=== PATIENT | male | born 1960 | race Two or more races ===

== ENCOUNTER 2024-10-28 13:20 | Emergency (ER) | payer MEDICAID, SELFPAY ==
[2024-10-28 13:23] VITALS: BMI 26.6
--- NOTE | 2024-10-28 13:44 | PC.NURSE ---
no answer in lobby when called for room in ed
--- NOTE | 2024-10-28 14:37 | PC.NURSE ---
no answer in lobby when called for room in ed
== END 2024-10-28 19:28 | disposition left against medical advice (07) ==
LOC: SERX 15:38
PROVIDERS: Emergency Provider Family Medicine
DX: Z53.21 Procedure and treatment not carried out due to patient leaving prior to being seen by health care provider (principal)
CPT/HCPCS: 99281

== ENCOUNTER 2025-02-03 07:20 | Emergency (ER) | payer MEDICAID, SELFPAY ==
[2025-02-03 07:30] VITALS: BP 160/96; PULSE 68; RESP 18; TEMP 36.9; O2SAT 99; BMI 28.3
--- NOTE | 2025-02-03 07:32 | XR_ITS ---
Examination: CT brain head without contrast. 2-D sagittal coronal reconstructions Date and time of exam:February 03, 2025, 0824 hours INDICATIONS: Generalized hip pain today CTDI: vol (mGy):54.8 DLP: (mGycm):1094 Technique: Multiple CT axial sections of the brain have been obtained, 5 mm slice thickness. Contrast has not been administered. 2-D sagittal, coronal reconstructions have been obtained Low dose protocols were performed. One or more of the following dose reduction techniques were used; automated exposure control, adjustment of the mA and/or KV according to patient size, use of iterative reconstruction technique. Findings: No significant ventricular enlargement. 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 No mass effect or midline shift Basal cisterns are not remarkable. Fourth ventricle is midline. Cranial vault intact. Mild chronic ethmoid sinusitis Heavy vertebral artery calcification Impression: Negative for acute hemorrhage, mass effect or midline shift Old appearing infarcts in the right basal ganglia, but clinical correlation advised As clinically warranted, consider brain MRI follow-up
--- NOTE | 2025-02-03 07:33 | EKG_ITS ---
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
--- NOTE | 2025-02-03 07:33 | XR_ITS ---
Examination: PA lateral chest 2 views TECHNIQUE: Upright PA lateral chest 2 views Date and time: February 03, 2025, 0747 hours Comparison March 19, 2016 INDICATIONS: Acute chest pain today. FINDINGS: Normal heart size Ectatic thoracic aorta No pulmonary edema or lobar pneumonia Mild osteopenia IMPRESSION: No lobar pneumonia or pulmonary edema
--- NOTE | 2025-02-03 07:33 | EDRME_ITS ---
Rapid Medical Screening Exam [facility] Arrival date/time: 02/03/25 07:20 64-year-old male with history of hypertension, diabetes, bipolar disorder and depression presents to the emergency department today for complaints of dizziness, fatigue. Patient reports that he has been out of his medication, he has not taken his medication over a month Chief Complaint: Dizziness Vital signs: Vital Signs Temperature 98.5 F 02/03/25 07:30 Pulse Rate 68 02/03/25 07:30 Respiratory Rate 18 02/03/25 07:30 Blood Pressure 160/96 H 02/03/25 07:30 Pulse Oximetry (%) 99 02/03/25 07:30 Oxygen Delivery Method Room Air 02/03/25 07:30
[2025-02-03 08:26] LABS: Glucose Estimated Average 143 mg/dL (80-131); Hemoglobin A1C 6.6 % Hgb (4.8-6.0)
[2025-02-03 08:30] LABS: B-Type Natriuretic Peptide 69 pg/mL (0-100)
[2025-02-03 08:32] LABS: Alanine Aminotransferase 11 U/L (10-49); Albumin, Serum 4.2 gm/dL (3.4-4.8); Albumin/Globulin Ratio 1.4 (1.2-2.2); Alkaline Phosphatase 137 U/L (46-116); Anion Gap 8 (7-16); Aspartate Amino Transferase 15 U/L (0-34); BUN/Creatinine Ratio 10 Ratio (12-20); Bilirubin,Total 0.4 mg/dL (0.3-1.2); Blood Urea Nitrogen 9 mg/dL (9-23); Calcium 9.4 mg/dL (8.3-10.6); Calcium (Corrected) 9.4 mg/dL (8.5-10.1); Carbon Dioxide 29.5 mMol/L (20.0-31.0); Chloride 103 mMol/L (98-107); Creatinine (Component) 0.9 mg/dL (0.6-1.3); Estimated Creatinine Clearance 90.6 mL/min (>60); Globulin 3.0 gm/dL (2.3-3.5); Glucose 192 mg/dL (74-106); Magnesium 1.3 mg/dL (1.6-2.6); Osmolality,Calculated 283 (275-295); Potassium 4.2 mMol/L (3.4-5.1); Sodium 140 mMol/L (136-145); Total Protein 7.2 gm/dL (5.7-8.2); Troponin I 0.139 ng/mL (0.0-0.045); eGFR > 60 See Note
[2025-02-03 08:38] LABS: Basophils # (Auto) 0.1 Thou/mm3 (0.0-0.2); Basophils % (Auto) 1 % (0-2.5); Eosinophils # (Auto) 0.2 Thou/mm3 (0.0-0.5); Eosinophils % (Auto) 3 % (0-10); Hematocrit 40.9 % (41.0-53.0); Hemoglobin 14.4 g/dL (13.5-16.0); Immature Granulocytes Auto 0.01 Thou/mm3 (0.00-0.00); Lymphocytes # (Auto) 1.7 Thou/mm3 (1.0-4.8); Lymphocytes % (Auto) 24 % (10-50); Mean Corpuscular HGB Conc 35.2 g/dl (31.0-37.0); Mean Corpuscular Hemoglobin 32.1 pg (25.0-35.0); Mean Corpuscular Volume 91 fL (80-100); Monocytes # (Auto) 0.5 Thou/mm3 (0.0-0.8); Monocytes % (Auto) 7 % (0-12); Neutrophils # (Auto) 4.6 Thou/mm3 (1.8-7.7); Neutrophils % (Auto) 66 % (37-80); Nucleated Red Blood Cell # 0.00 Thou/mm3 (0.00-0.00); Nucleated Red Blood Cell % 0 /100 WBC (0); Platelet Count 268 Thou/mm3 (140-440); RDW Standard Deviation 41.3 fL (35.1-43.9); Red Blood Count 4.49 Miln/mm3 (4.50-5.90); White Blood Count 7.0 Thou/mm3 (3.8-10.6)
[2025-02-03 08:53] LABS: INR 1.0 (0.9-1.3); Partial Thromboplastin Time 27.1 Seconds (22.0-36.0); Prothrombin Time 10.9 Seconds (9.0-12.2)
--- NOTE | 2025-02-03 09:30 | PD.EDADULT ---
ED General RME/HPI General Chief complaint: Dizziness Stated complaint: Out of DM pills and HTN pills, dizzy Arrival date/time: 02/03/25 07:20 RME / HPI RME / HPI narrative: 02/03/25 07:20 64-year-old male with history of hypertension, diabetes, bipolar disorder and depression presents to the emergency department today for complaints of dizziness, fatigue. Patient reports that he has been out of his medication, he has not taken his medication over a month DR. SEXTON MAIN ED EVALUATION: 64 year old male presents to the Emergency Department with complaint of dizziness and generalized weakness today. Patient states he has history of diabetes and hypertension and ran out of his medications. He has been on metformin for 4-5 years. Otherwise, no other complaints; no eating problems, no unsteady gait/ gait problems, cough, shortness of breath, congestion, cold, nausea, vomiting, diarrhea, abnormal bleed, or other symptoms at this time. Related Data Home Medications ?Medication ?Instructions ?Recorded ?Confirmed lisinopril 20 mg tablet 20 mg PO DAILY 09/03/18 10/10/18 metformin 1,000 mg tablet 1,000 mg PO BID 09/03/18 10/10/18 sitagliptin phosphate 100 mg 100 mg PO DAILY 09/03/18 10/10/18 tablet (Januvia) Previous Rx's ?Medication ?Instructions ?Recorded acetaminophen 500 mg tablet 500 mg PO QID PRN pain #60 tabs 09/03/18 acetaminophen 500 mg tablet 1,000 mg (2 x 500 mg) PO Q6H PRN 02/10/21 pain #20 tabs ibuprofen 800 mg tablet 800 mg PO Q6H PRN pain #12 tabs 02/10/21 gabapentin 300 mg capsule 300 mg PO TID PRN pain #20 caps 07/18/22 Allergies Allergy/AdvReac Type Severity Reaction Status Date / Time No Known Allergies Allergy Verified 02/03/25 07:24 Review of Systems Review of Systems Systems Reviewed: All systems reviewed, normal except as documented Past Medical History Past Medical History CARDIAC: Positive Cardiac Disorders, Hypercholesterolemia and Hypertension; Negative Congestive Heart Failure RESPIRATORY: Positive Asthma; Negative Chronic Obstructive Pulmonary Disease (COPD) GENITOURINARY: Negative Renal Disease ENDOCRINE: Positive Endocrine Disorders and Diabetes Mellitus Type 2; Negative Diabetes Mellitus Type 1 HEMATOLOGIC: Negative Sickle Cell Disease PSYCHO/SOCIAL: Positive Depression Social History SMOKING STATUS: Current some day smoker SUBSTANCE USE: does not use ED Exam Narrative Physical exam: Physical Exam:? General:?? ? The vital signs were reviewed. ? ? The patient is non-toxic, in no apparent distress and appears healthy with a patent airway, no respiratory distress and has no apparent circulatory problems. Head & Scalp:?? ? Normocephalic, atraumatic. Face:?? ? Appears normal and is without lesions, deformity. Ears:??? Left external pinna appears normal. ? ? Right external pinna appears normal. Eyes:?? ? The sclera is anicteric.? No obvious photophobia. ? ? The Left and Right Orbit/Lid/Conjunctiva appears normal without swelling, discoloration or injection. Nose: ? ? The nose is without deformity, discharge or tenderness; Throat: ? ? Appears normal.? The mucous membranes are pink and moist without exudates, redness or mass seen.? The tongue appears normal. Neck: The neck is supple and no apparent mass or adenopathy. Chest: The chest wall is normal in size and symmetry and has no chest wall tenderness or crepitus. ? ? The patient displays normal ventilator effort without retractions, accessory muscle use and has adequate air movement bilaterally with no wheezes and no rales. ? Cardiovascular: Regular rate and rhythm; No murmurs, rubs, or gallops; Gastrointestinal: The abdomen appears normal.? No obvious hernias or mass. The abdomen is soft and benign, non-distended, with no pain, no guarding and no rebound tenderness.? Bowel sounds are present and normal sounding.? No CVA tenderness. Genitourinary: Back/Spine: Extremities/Musculoskeletal/lymphatic:? ? ? The bilateral upper and lower extremities are warm. There is no evidence of arterial? insufficiency. There is no evidence of venous insufficiency/edema. The patient spontaneously moves bilateral upper and lower extremities with no pain and no limitation of movement.? There is no apparent, injury or trauma. Skin:? The skin is warm, dry and intact.? No rashes. No petechia. No purpura. No abnormal bruising.? The color is appropriate with no cyanosis. Mental status/Psychiatric: Mental status is appropriate for age. The patient has no apparent delusions, visual hallucinations, no apparent audible hallucinations. The patient has no apparent suicidal thoughts/ideation and no apparent homicidal thoughts/ideation. Neurological:? The patient is awake, alert, interactive, cordial, cooperative and is oriented to name and situation. The patient follows commands and answers historical question with no impairment.?? There is no visual disturbance apparent.? The pupils are equal and reactive bilaterally with normal eye movements and no diplopia The bilateral upper and lower extremities have normal strength, normal range of motion and normal functioning. The gait, station and balance appears? to be baseline with no acute change Course Quality Measures none Orders Category Date Time Status EKG (ED ONLY) *Do not use* NOW Care 02/03/25 07:[address] head/brain wo con Stat Exams 02/03/25 07:32 Completed EKG (ED Only) Stat Exams 02/03/25 07:33 Draft XR chest 2V Stat Exams 02/03/25 07:33 Completed A1C [Glycohemoglobin w (eAG)] Stat Lab 02/03/25 08:02 Completed B-Type Natriuretic Peptide Stat Lab 02/03/25 08:02 Completed CBC Stat Lab 02/03/25 08:02 Completed Comprehensive Metabolic Panel Stat Lab 02/03/25 08:02 Completed Magnesium Stat Lab 02/03/25 08:02 Completed Partial Thromboplastin Time Stat Lab 02/03/25 08:02 Completed Prothrombin Time with INR Stat Lab 02/03/25 08:02 Completed Troponin I Stat Lab 02/03/25 08:02 Completed Vital Signs Vital signs: Vital Signs Temperature 98.5 F 02/03/25 07:30 Pulse Rate 68 02/03/25 07:30 Respiratory Rate 18 02/03/25 07:30 Blood Pressure 160/96 H 02/03/25 07:30 Pulse Oximetry (%) 99 02/03/25 07:30 Oxygen Delivery Method Room Air 02/03/25 07:30 Discharge Plan Plan Patient Disposition: Elopement Prescriptions/Referrals Prescriptions/Med Rec: No Action acetaminophen 500 mg tablet 500 mg PO QID PRN (Reason: pain) Qty: 60 0RF lisinopril 20 mg Tablet 20 mg PO DAILY metformin 1,000 mg Tablet 1,000 mg PO BID Januvia 100 mg Tablet 100 mg PO DAILY ibuprofen 800 mg tablet 800 mg PO Q6H PRN (Reason: pain) Qty: 12 0RF acetaminophen 500 mg tablet 1,000 mg PO Q6H PRN (Reason: pain) Qty: 20 0RF gabapentin 300 mg capsule 300 mg PO TID PRN (Reason: pain) Qty: 20 0RF Referrals: Chely Wade MD [Primary Care Provider] - In 1 week Problem List Clinical Impression: Patient left without being discharged, Elevated troponin, Drug noncompliance Impression comment: Recent incarceration released and did not see a doctor to refill medication and left before medical workup was completed, elopement Patient/Caregiver Discharge Instructions Print Language: Latvian MDM Narrative MDM hospital course: Patient has no complaints at all and was here only to get his medications filled up. Blood glucose was 192. No patient is a 64-year-old comes in initially states he is feeling dizzy but later states he ran out of his medicine since he got out of longterm and wanted his meds filled. He made no effort to go to the clinic where he goes to the [facility] clinic to be seen. He did not have any chest pain shortness of breath and actually admitted he really just wanted his meds filled and did not have any acute medical problem. We had a discussion about contacting [facility] clinic and see if we can get him appointment but when we came back he patient had eloped. A medical workup was initiated due to the RME process and revealed the following white count 7.0 hemoglobin of 14.4 PT/INR within normal limits electrolytes were normal BUN 9 creatinine 0.9. Glucose was elevated at 192 hemoglobin A1c is 6.6 troponin came back slightly elevated 0.139. Urinalysis was not collected. A chest x-ray was done which shows no acute. No evidence of pneumonia or fluid collections. CT of the head was done presenting for his complaint of dizziness which was negative. Note patient evidently ambulated out of the room out of the hospital without telling anybody and there was no apparent abnormality in his gait or motor strength. Bottom line is he has a none negative troponin etiology unclear had a previous history of drug abuse. The patient left without informing anybody. Esha Foster, am scribing for and in the presence of Dr. Sexton. Clinical Information Provided by patient Medical Records Reviewed [facility] Meds/Rx Considered, not Ordered None Labs/Rad/Tests considered, not Ordered None Chronic Illness/Social Conditions Add or document further as needed: diabetes and hypertension EKG EKG Interpretation narrative: My interpretation: EKG performed at 0737 hours, sinus rhythm, rate 80, no STEMI Lab Interpretation Labs: see narrative above Imaging Imaging interpretation: see narrative above Radiology reports / interpretation(s): Procedure(s): XR chest 2V Accession Number(s): [id number] cc: Hank PEPE),Nael HUDSON; Kali Mojica MD; Chely Wade MD~ Examination: PA lateral chest 2 views TECHNIQUE: Upright PA lateral chest 2 views Date and time: February 03, 2025, 0747 hours Comparison March 19, 2016 INDICATIONS: Acute chest pain today. FINDINGS: Normal heart size Ectatic thoracic aorta No pulmonary edema or lobar pneumonia Mild osteopenia IMPRESSION: No lobar pneumonia or pulmonary edema Dictated By: Kali Mojica MD Procedure(s): CT head/brain wo con Accession Number(s): [id number] cc: Hank PEPE),Nael HUDSON; Kail Mojica MD; Chely Wade MD~ Examination: CT brain head without contrast. 2-D sagittal coronal reconstructions Date and time of exam:February 03, 2025, 0824 hours INDICATIONS: Generalized hip pain today CTDI: vol (mGy):54.8 DLP: (mGycm):1094 Technique: Multiple CT axial sections of the brain have been obtained, 5 mm slice thickness. Contrast has not been administered. 2-D sagittal, coronal reconstructions have been obtained Low dose protocols were performed. One or more of the following dose reduction techniques were used; automated exposure control, adjustment of the mA and/or KV according to patient size, use of iterative reconstruction technique. Findings: No significant ventricular enlargement. 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 No mass effect or midline shift Basal cisterns are not remarkable. Fourth ventricle is midline. Cranial vault intact. 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
--- NOTE | 2025-02-03 10:06 | PC.NURSE ---
THIS PT LEFT THE ER WITHOUT TELLING ANYONE, I CALLED AND SPOKE TO GISEL (SISTER) TO LET HER KNOW THAT IF SHE SEE HER BROTHER; TO LET HIM KNOW THAT HE HAS ABNORMAL LABS AND THAT THE DOCTOR STRONGLY RECOMMEND HIM TO COME TO THE ER.
== END 2025-02-03 10:09 | disposition left against medical advice (07) ==
LOC: SERX 07:44
PROVIDERS: Nurse Practitioner Primary Care; Emergency Provider Emergency Medicine; PCP Family Medicine
DX: R79.89 Other specified abnormal findings of blood chemistry (principal); Z91.148 Patient's other noncompliance with medication regimen for other reason; R42 Dizziness and giddiness; Z86.73 Personal history of transient ischemic attack (TIA), and cerebral infarction without residual deficits; E11.9 Type 2 diabetes mellitus without complications; I10 Essential (primary) hypertension; F31.9 Bipolar disorder, unspecified
CPT/HCPCS: 36415; 70450; 71046; 80053; 80307; 81001; 83036; 83735; 83880; 84484; 85025; 85610; 85730; 93005; 99283

== ENCOUNTER 2025-02-21 11:08 | Emergency (ER) | payer MEDICAID, SELFPAY ==
[2025-02-21 11:09] VITALS: BMI 26.6
[2025-02-21 11:23] VITALS: BP 130/79; PULSE 78; RESP 18; TEMP 36.6; O2SAT 98
--- NOTE | 2025-02-21 11:32 | XR_ITS ---
Examination: Foot, left, 3 views Technique: AP, oblique, lateral views foot, 3 views Date and time of exam: February 13, 2025 1145 hours INDICATIONS: Nonhealing ulcer left foot FINDINGS: Soft tissue swelling about the fifth metatarsophalangeal joint Moderate osteopenia No kalen cortical bone destruction IMPRESSION: No kalen cortical bone destruction Consider MRI foot without contrast follow-up as clinical warranted
--- NOTE | 2025-02-21 11:32 | PD.EDRME ---
Rapid Medical Screening Exam RME Arrival date/time: 02/21/25 11:08 64-year-old male with a history of type 2 diabetes presents to the emergency room with a chief complaint of a diabetic foot ulcer to his left foot first digit I have greeted and performed a focused initial assessment of this patient. A comprehensive ED assessment and evaluation of the patient, analysis of all test results, and completion of the medical decision making process will be conducted by additional ED providers. Chief Complaint: Wound/Laceration Time Seen by Provider: 02/21/25 11:27 Vital signs: Vital Signs Temperature 97.8 F 02/21/25 11:23 Pulse Rate 78 02/21/25 11:23 Respiratory Rate 18 02/21/25 11:23 Blood Pressure 130/79 02/21/25 11:23 Pulse Oximetry (%) 98 02/21/25 11:23 Oxygen Delivery Method Room Air 02/21/25 11:23 Vital signs reviewed by provider: Yes
[2025-02-21 12:01] LABS: Lactate (Lactic Acid) 1.5 mMol/L (0.4-2.0)
[2025-02-21 12:07] LABS: Basophils # (Auto) 0.1 Thou/mm3 (0.0-0.2); Basophils % (Auto) 1 % (0-2.5); Eosinophils # (Auto) 0.2 Thou/mm3 (0.0-0.5); Eosinophils % (Auto) 2 % (0-10); Hematocrit 39.8 % (41.0-53.0); Hemoglobin 13.8 g/dL (13.5-16.0); Immature Granulocytes Auto 0.02 Thou/mm3 (0.00-0.00); Lymphocytes # (Auto) 1.6 Thou/mm3 (1.0-4.8); Lymphocytes % (Auto) 16 % (10-50); Mean Corpuscular HGB Conc 34.7 g/dl (31.0-37.0); Mean Corpuscular Hemoglobin 31.8 pg (25.0-35.0); Mean Corpuscular Volume 92 fL (80-100); Monocytes # (Auto) 0.6 Thou/mm3 (0.0-0.8); Monocytes % (Auto) 6 % (0-12); Neutrophils # (Auto) 7.6 Thou/mm3 (1.8-7.7); Neutrophils % (Auto) 76 % (37-80); Nucleated Red Blood Cell # 0.00 Thou/mm3 (0.00-0.00); Nucleated Red Blood Cell % 0 /100 WBC (0); Platelet Count 235 Thou/mm3 (140-440); RDW Standard Deviation 40.3 fL (35.1-43.9); Red Blood Count 4.34 Miln/mm3 (4.50-5.90); White Blood Count 10.0 Thou/mm3 (3.8-10.6)
[2025-02-21 12:36] LABS: Alanine Aminotransferase 11 U/L (10-49); Albumin, Serum 4.2 gm/dL (3.4-4.8); Albumin/Globulin Ratio 1.3 (1.2-2.2); Alkaline Phosphatase 146 U/L (46-116); Anion Gap 9 (7-16); Aspartate Amino Transferase 21 U/L (0-34); BUN/Creatinine Ratio 10 Ratio (12-20); Bilirubin,Total 1.1 mg/dL (0.3-1.2); Blood Urea Nitrogen 10 mg/dL (9-23); C-Reactive Protein < 0.5 mg/dL (0.0-0.9); Calcium 9.0 mg/dL (8.3-10.6); Calcium (Corrected) 9.0 mg/dL (8.5-10.1); Carbon Dioxide 26.6 mMol/L (20.0-31.0); Chloride 106 mMol/L (98-107); Creatinine (Component) 1.0 mg/dL (0.6-1.3); Estimated Creatinine Clearance 69.8 mL/min (>60); Globulin 3.2 gm/dL (2.3-3.5); Glucose 212 mg/dL (74-106); Osmolality,Calculated 288 (275-295); Potassium 3.8 mMol/L (3.4-5.1); Procalcitonin < 0.04 ng/ml (0.0-0.49); Sodium 142 mMol/L (136-145); Total Protein 7.4 gm/dL (5.7-8.2); eGFR > 60 See Note
[2025-02-21 12:43] LABS: Sed Rate (ESR) 11 mm/hr (0-20)
--- NOTE | 2025-02-21 14:40 | PC.NURSE ---
PT CALLED IN LOBBY AND OUTSIDE; NO RESPONSE AT THIS TIME
--- NOTE | 2025-02-21 15:22 | PC.NURSE ---
no answer in lobby at this time.
--- NOTE | 2025-02-21 16:42 | PC.NURSE ---
no answer in lobby or in front of er x 3.
== END 2025-02-21 16:42 | disposition left against medical advice (07) ==
LOC: SERX 12:18
PROVIDERS: Nurse Practitioner Family; Emergency Provider Emergency Medicine; PCP Family Medicine
DX: E11.621 Type 2 diabetes mellitus with foot ulcer (principal); L97.529 Non-pressure chronic ulcer of other part of left foot with unspecified severity; Z53.29 Procedure and treatment not carried out because of patient's decision for other reasons
CPT/HCPCS: 36415; 73630; 80053; 83605; 84145; 85025; 85652; 86140; 87040; 99283